=== PATIENT | female | born 1935 | race Caucasian/White ===

== ENCOUNTER → 2018-01-17 | Outpatient (CLI) | payer MEDICARE ==
--- NOTE | 2018-01-17 19:12 | CT ---
EXAMINATION TYPE: CT neck chest w con DATE OF EXAM: 01/17/2018 COMPARISON: None available at this location. HISTORY: Abnormal findings of lung field-right CT DLP: 758.60 mGycm CONTRAST: Patient injected with 80 mL of Isovue 300. TECHNIQUE: Axial images at 3 mm thick sections. Reconstructed images in the coronal plane and sagitt al plane are reviewed. FINDINGS: Limited CT sections are obtained the lung apices. Mild apical scarring is present bilateral ly. CT neck: The torus tubarius and fossa of Rosenmuller are normal. Carpentry [employer] spaces are normal. Para nasal sinuses and mastoid air cells are clear. Parotid glands appear normal and symmetrical. Submandibular glands, are normal. Parapharyngeal spac es are normal. No suspicious adenopathy is evident. The hypopharynx appears within normal limits. Vocal cord level appear symmetrical. There is a 0.5 cm hypodensity within the right lobe thyroid. Degenerative changes are noted through the cervical spine. Some endplate spurring has anterior thecal sac compression. Uncovertebral joint hypertrophy is contributing to foraminal stenosis. IMPRESSIONS: 1. 0.5 similar hypodensity mid right lobe thyroid. 2. No suspicious acute changes CT neck. EXAMINATION TYPE: CT neck chest w con DATE OF EXAM: 01/17/2018 COMPARISON: None available at this location. HISTORY: Abnormal findings of lung field-right CT DLP: 758.60 mGycm, Automated exposure control for dose reduction was used. CONTRAST: Performed injected with 80 mL of Isovue 300. TECHNIQUE: Axial images were obtained at 5 mm thick sections. Reconstructed images are reviewed on [employer] computer in the coronal plane. FINDINGS: Portion of the thyroid visualized is normal. There is some bilateral apical scarring present. No enlarged mediastinal or hilar adenopathy is evident. The ascending aorta diameter at the level o f the main pulmonary artery is 3.5 cm. The main pulmonary artery diameter at the bifurcation is 2.5 cm. Coronary artery calcification is present. There is a 1.0 cm cyst on the posterior right lobe live r. Limited CT sections are obtained through the upper abdomen. Abdomen is essentially unremarkable. IMPRESSIONS: 1. No definite acute changes within the right lung. Minimal apical scarring is present bilaterally.
== END | disposition home or self-care (01) ==
LOC: RADCTMAIN 07:39
PROVIDERS: ATTEND Internal Medicine Sleep Medicine
DX: R91.8 Other nonspecific abnormal finding of lung field (principal); J98.4 Other disorders of lung
CPT/HCPCS: 82565; 84520; 70491; 71260; 36415; Q9967